=== PATIENT | male | born 1995 | race Caucasian/White ===

== ENCOUNTER 2018-03-17 07:41 | Emergency (ER) | payer BC ==
[~2018-03-17] VITALS: Ht 188 cm; Wt 112.4 kg
[~2018-03-17 07:41] MED LIST: AMOXICILLIN500 MG PO; ATARAX,VISTARIL25 MG PO; CARAFATE100 MG/ML PO; FLEXERIL5 MG PO; HYDROCODON-ACE1 EAC7 PO; MOTRIN600 MG PO; NAPROSYN500 MG PO; NOHOMEMEDS; REGLAN10 MG PO; ZANTAC300 MG PO; ZITHROMAX Z-PA250 MG PO; ZOFRAN ODT4 MG PO
[2018-03-17] MEDS ORDERED: NAPROSYN500 MG PO (08:18)
[2018-03-17 08:30] VITALS: BP 155/81
== END 2018-03-17 08:30 | disposition home or self-care (01) ==
LOC: EME 07:41
DX: S63.502A Unspecified sprain of left wrist, initial encounter (principal); W18.39XA Other fall on same level, initial encounter; Y93.64 Activity, baseball; Y92.320 Baseball field as the place of occurrence of the external cause; F17.200 Nicotine dependence, unspecified, uncomplicated
CPT/HCPCS: 73110; 99281; 99284

== ENCOUNTER 2018-03-26 16:09 | Emergency (ER) | payer BC ==
[~2018-03-26] VITALS: Ht 188 cm; Wt 113.4 kg
[2018-03-26] MEDS ORDERED: KEFLEX500 MG PO (17:34)
[2018-03-26] MEDS ORDERED: MOTRIN800 MG PO (17:34)
[2018-03-26 18:00] VITALS: BP 154/84
== END 2018-03-26 18:01 | disposition home or self-care (01) ==
LOC: EME 16:09 → EXP 16:09
PROC: 3E0234Z Introduction of Serum, Toxoid and Vaccine into Muscle, Percutaneous Approach (ICD-10-PCS; principal; 2018-03-26)
DX: S80.812A Abrasion, left lower leg, initial encounter (principal); L03.116 Cellulitis of left lower limb; W22.09XA Striking against other stationary object, initial encounter; Y93.64 Activity, baseball; Y99.0 Civilian activity done for income or pay; Y92.89 Other specified places as the place of occurrence of the external cause; Z23 Encounter for immunization; F17.200 Nicotine dependence, unspecified, uncomplicated
CPT/HCPCS: 99281; 99284